=== PATIENT | female | born 1985 | race Caucasian/White ===

== ENCOUNTER 2020-05-19 10:57 | Emergency (ER) | payer OTHER ==
[~2020-05-19 10:57] MED LIST: ADDERALL 30 MG30 MG PO; CYMBALTA60 MG PO; IBUPROFEN600 MG PO; PROTONIX40 MG PO; SEROQUEL25 MG PO
== END 2020-05-19 14:02 | disposition home or self-care (01) ==
LOC: ER1 10:57
DX: M79.10 Myalgia, unspecified site (principal); R68.83 Chills (without fever); R42 Dizziness and giddiness; R51.9 Headache, unspecified; R06.02 Shortness of breath; Z20.828 Contact with and (suspected) exposure to other viral communicable diseases
CPT/HCPCS: 71046; 81001; 87086; 99285; U0003

== ENCOUNTER → 2020-07-15 | Outpatient (CLI) | payer OTHER | LOC: KOH-I 14:13 | DX: R51.9 Headache, unspecified (principal); J32.9 Chronic sinusitis, unspecified; M27.40 Unspecified cyst of jaw | CPT/HCPCS: 70486 ==

== ENCOUNTER → 2020-10-31 | Outpatient (CLI) | payer OTHER | LOC: KOH-I 15:11 | DX: M25.571 Pain in right ankle and joints of right foot (principal) | CPT/HCPCS: 73610; 73630 ==

== ENCOUNTER → 2020-11-28 | Outpatient (CLI) | payer OTHER | LOC: KOH-I 13:21 | DX: M79.671 Pain in right foot (principal); M25.571 Pain in right ankle and joints of right foot | CPT/HCPCS: 73721 ==

== ENCOUNTER → 2021-11-07 | Outpatient (CLI) | payer OTHER | LOC: HEART 5 13:42 | DX: R06.02 Shortness of breath (principal) | CPT/HCPCS: 94010; 94729 ==

== ENCOUNTER → 2021-11-07 | Outpatient (CLI) | payer OTHER | LOC: SLEEP 21:30 | DX: R40.0 Somnolence (principal); G47.61 Periodic limb movement disorder | CPT/HCPCS: 95810 ==